=== PATIENT | male | born 1950 | race African-American/Black ===

== ENCOUNTER 2017-03-03 12:37 | Emergency (ER) | payer MEDICARE, MEDICAID ==
[~2017-03-03] VITALS: Ht 177.8 cm; Wt 87.0 kg
[2017-03-03] MEDS ORDERED: ACETAMINOPHEN 325MG TABLET PO STA (13:36)
[2017-03-03 13:58] LABS: HEMOGLOBIN. 9.1 g/dL (14.0-18.0); MEAN CORPUSCULAR HEMOGLOBIN 27.2 pg (28.0-32.0); MEAN CORPUSCULAR VOLUME 80.9 fL (80.0-94.0); MEAN PLATELET VOLUME 6.5 fl (7.4-10.4); PLATELET 110 x1000/uL (130-400); RED BLOOD CELL COUNT 3.34 mill/uL (4.7-6.1)
[2017-03-03 14:10] LABS: CARBON DIOXIDE 25 mEq/L (21-32); CHLORIDE 97 mEq/L (98-107)
[2017-03-03 14:19] LABS: PLATELET ESTIMATE SLIGHTLY DECREASED
[2017-03-03] MEDS ORDERED: SODIUM CHLORIDE 0.9% 1,000 ML IV ONE (14:49)
[2017-03-03] MEDS ORDERED: MORPHINE SULFATE 4 MG/ML CPJ (NOT FOR IM USE) IV ONE (15:30)
[2017-03-03 17:14] VITALS: BP 113/66
== END 2017-03-03 17:18 | disposition home or self-care (01) ==
LOC: ER 13:41
DX: M25.50 Pain in unspecified joint (principal); F17.210 Nicotine dependence, cigarettes, uncomplicated; Z85.46 Personal history of malignant neoplasm of prostate; Z96.659 Presence of unspecified artificial knee joint
CPT/HCPCS: 36415; 80048; 85025; 96361; 96374; 99284; J2270; J7030

== ENCOUNTER 2017-03-05 12:02 | Inpatient (IN) | payer MEDICARE, MEDICAID ==
[~2017-03-05] VITALS: Ht 172.7 cm; Wt 80.3 kg
[2017-03-05] MEDS ORDERED: ONDANSETRON HCL 4MG/2ML VIAL IV STA (12:13)
[2017-03-05] MEDS ORDERED: SODIUM CHLORIDE 0.9% 1,000 ML IV ONE (12:13)
[2017-03-05] MEDS ORDERED: MORPHINE SULFATE 4 MG/ML CPJ (NOT FOR IM USE) IV STA (12:13)
[2017-03-05 12:26] LABS: HEMATOCRIT. 24.7 % (42.0-52.0); HEMOGLOBIN. 8.4 g/dL (14.0-18.0); MEAN CORPUSCULAR VOLUME 79.7 fL (80.0-94.0); MEAN PLATELET VOLUME 6.4 fl (7.4-10.4); PLATELET 120 x1000/uL (130-400); RED CELL DISTRIBUTION WIDTH 16.1 % (11.6-14.6)
[2017-03-05 12:35] LABS: INR 1.2; PARTIAL THROMBOPLASTIN TIME 31.3 sec (23.4-31.0)
[2017-03-05 12:47] LABS: CARBON DIOXIDE 25 mEq/L (21-32); CHLORIDE 99 mEq/L (98-107); TROPONIN I < 0.02 ng/mL (0.00-0.04)
[2017-03-05 12:52] LABS: NUCLEATED RED BLOOD CELLS 1 /100 WBC
[2017-03-05 12:55] LABS: PLATELET ESTIMATE SLIGHTLY DECREASED
[2017-03-05 15:22] LABS: CLARITY URINE CLEAR (CLEAR); COLOR URINE DARK YELLOW (YELLOW); GLUCOSE URINE NEGATIVE (NEGATIVE); KETONES URINE TRACE (NEGATIVE); LEUKOCYTE ESTERASE URINE NEGATIVE (NEGATIVE); NITRITE URINE NEGATIVE (NEGATIVE); OCCULT BLOOD URINE 1+ (NEGATIVE); PROTEIN URINE 1+ (NEGATIVE); SPECIFIC GRAVITY URINE 1.025 (1.005-1.030)
[2017-03-05] MEDS ORDERED: ONDANSETRON HCL 4MG/2ML VIAL IV ONE (16:45)
[2017-03-05] MEDS ORDERED: MORPHINE SULFATE 4 MG/ML CPJ (NOT FOR IM USE) IV ONE (16:45)
[2017-03-05] MEDS ORDERED: DEXAMETHASONE 10 MG/ML VIAL IV ONE (17:30)
[2017-03-05] MEDS ORDERED: NICARDIPINE 100 MG in SODIUM CHLORIDE 0.9% 60 ML IV PRN (20:45)
[2017-03-05 21:13] VITALS: BP_SYST 117; BP_DIAS 65; BP_DIAS 68
[2017-03-05 21:30] VITALS: BP 99/55
[2017-03-05] MEDS ORDERED: TAMS-11 PO (21:39)
[2017-03-05 22:00] VITALS: BP 117/68
[2017-03-05 22:30] VITALS: BP 98/53
[2017-03-05 23:00] VITALS: BP 96/59
[2017-03-05] MEDS: DEXT 5%/LACTATED RINGERS 1,000 ML IV SCH (23:14)
[2017-03-05 23:30] VITALS: BP 106/60
[2017-03-06] VITALS (50 sets, daily range): BP systolic 98–137; BP diastolic 41–107
[2017-03-06] MEDS ORDERED: DEXAMETHASONE 4MG/ML 1ML VIAL IV SCH
[2017-03-06] MEDS: DEXAMETHASONE 4MG/ML 1ML VIAL IV SCH ×4 (00:43→18:47)
[2017-03-06 05:46] LABS: HEMATOCRIT 23.9 % (42.0-52.0); HEMOGLOBIN 8.1 g/dL (14.0-18.0); MEAN CORPUSCULAR HEMOGLOBIN 27.2 pg (28.0-32.0); MEAN CORPUSCULAR VOLUME 80.4 fL (80.0-94.0); PLATELET 129 x1000/uL (130-400); RED BLOOD CELL COUNT 2.97 mill/uL (4.7-6.1); RED CELL DISTRIBUTION WIDTH 16.5 % (11.6-14.6)
[2017-03-06 05:49] LABS: CARBON DIOXIDE 26 mEq/L (21-32); CHLORIDE 101 mEq/L (98-107)
[2017-03-06] MEDS: FAMOTIDINE 20MG/2ML VIAL IV SCH ×2 (08:58→20:41)
[2017-03-06] MEDS: MORPHINE SULFATE 2 MG/ML CPJ (NOT FOR IM USE) IV PRN ×4 (08:59→20:31)
[2017-03-06] MEDS ORDERED: PANTOPRAZOLE SODIUM 40 MG/VIAL IV SCH (09:00)
[2017-03-06] MEDS: DEXT 5%/LACTATED RINGERS 1,000 ML IV SCH (16:32)
[2017-03-06] MEDS ORDERED: IPRATROPIUM/ALBUTEROL 0.5-3(2.5)MG/3ML NEB HHN PRN (18:15)
[2017-03-06] MEDS: TAMSULOSIN HCL 0.4MG SR CAPSULE PO SCH (18:47)
[2017-03-06 19:03] LABS: TOTAL IRON BINDING CAPACITY 148 ug/dL (250-450)
[2017-03-07] VITALS (50 sets, daily range): BP systolic 99–182; BP diastolic 56–107
[2017-03-07] MEDS: DEXAMETHASONE 4MG/ML 1ML VIAL IV SCH ×4 (00:38→18:21)
[2017-03-07] MEDS: MORPHINE SULFATE 2 MG/ML CPJ (NOT FOR IM USE) IV PRN ×4 (00:40→22:01)
[2017-03-07] MEDS: TAMSULOSIN HCL 0.4MG SR CAPSULE PO SCH (08:49)
[2017-03-07] MEDS: FAMOTIDINE 20MG/2ML VIAL IV SCH ×2 (08:49→21:34)
[2017-03-07 09:00] LABS: HEMATOCRIT. 30.6 % (42.0-52.0); HEMOGLOBIN. 10.3 g/dL (14.0-18.0); MEAN CORPUSCULAR HEMOGLOBIN 27.6 pg (28.0-32.0); MEAN CORPUSCULAR VOLUME 81.8 fL (80.0-94.0); MEAN PLATELET VOLUME 6.8 fl (7.4-10.4); PLATELET 132 x1000/uL (130-400); RED BLOOD CELL COUNT 3.73 mill/uL (4.7-6.1); RED CELL DISTRIBUTION WIDTH 16.6 % (11.6-14.6)
[2017-03-07 09:20] LABS: CARBON DIOXIDE 24 mEq/L (21-32); CHLORIDE 103 mEq/L (98-107)
[2017-03-07 11:15] LABS: INR 1.1; PROTHROMBIN TIME 11.7 sec (9.4-11.6)
[2017-03-07 12:46] LABS: NUCLEATED RED BLOOD CELLS 13 /100 WBC; PLATELET ESTIMATE NORMAL
[2017-03-07] MEDS: DEXT 5%/LACTATED RINGERS 1,000 ML IV SCH (17:20)
[2017-03-08] VITALS (69 sets, daily range): BP systolic -11–236; BP diastolic -12–146
[2017-03-08] MEDS: DEXAMETHASONE 4MG/ML 1ML VIAL IV SCH ×4 (00:12→17:40)
[2017-03-08] MEDS: DEXT 5%/LACTATED RINGERS 1,000 ML IV SCH ×2 (01:45→17:41)
[2017-03-08] MEDS ORDERED: GELATIN SPONGE,ABSORBABLE SZ 100 ONE (06:31)
[2017-03-08] MEDS ORDERED: LIDOCAINE HCL 1%/EPI 1:200,000 30 ML VIAL ONE (06:31)
[2017-03-08] MEDS ORDERED: BACITRACIN ZINC 15GM TUBE TOP ONE (06:31)
[2017-03-08] MEDS ORDERED: NORMAL SALINE 0.9% 10 ML SYR ONE (06:32)
[2017-03-08] MEDS ORDERED: THROMBIN (BOVINE) 5000 UNITS/VIAL TOP ONE (06:32)
[2017-03-08] MEDS ORDERED: BACITRACIN 50,000 UNITS/VIAL ONE (06:32)
[2017-03-08] MEDS ORDERED: ETOMIDATE 2MG/ML 10ML VIAL IV ONE (07:39)
[2017-03-08] MEDS ORDERED: CEFAZOLIN SODIUM 1000MG/VIAL ONE (07:39)
[2017-03-08] MEDS ORDERED: PROPOFOL 200MG/20ML VIAL IV ONE ×2 (07:39→08:41)
[2017-03-08] MEDS ORDERED: ONDANSETRON HCL 4MG/2ML VIAL ONE (07:39)
[2017-03-08] MEDS ORDERED: ROCURONIUM BROMIDE 10MG/ML VIAL 5ML IV ONE ×2 (07:39→08:41)
[2017-03-08] MEDS ORDERED: NICARDIPINE 50 MG in SODIUM CHLORIDE 0.9% 230 ML IV PRN (07:45)
[2017-03-08] MEDS ORDERED: DEXT 5%/LACTATED RINGERS 1,000 ML IV SCH (07:45)
[2017-03-08] MEDS ORDERED: MORPHINE SULFATE 2 MG/ML CPJ (NOT FOR IM USE) IV PRN (07:45)
[2017-03-08] MEDS ORDERED: MIDAZOLAM HCL 2 MG/2 ML VIAL ONE ×2 (07:49→07:51)
[2017-03-08] MEDS: TAMSULOSIN HCL 0.4MG SR CAPSULE PO SCH (09:00)
[2017-03-08] MEDS ORDERED: ESMOLOL HCL 10MG/ML 10ML VIAL IV ONE (09:31)
[2017-03-08] MEDS ORDERED: NEOSTIGMINE METHYLSULFATE 1MG/ML 10 ML VIAL ONE (10:04)
[2017-03-08] MEDS ORDERED: GLYCOPYRROLATE 0.2 MG/ML 2ML VIAL ONE (10:04)
[2017-03-08] MEDS ORDERED: ONDANSETRON HCL 4MG/2ML VIAL IV PRN (10:30)
[2017-03-08] MEDS ORDERED: LABETALOL 5MG/ML SYR 20 MG/4 ML SYRINGE IV PRN (10:30)
[2017-03-08] MEDS ORDERED: HYDROMORPHONE HCL/PF 2MG/ML CPJ IV PRN (10:30)
[2017-03-08] MEDS ORDERED: FENTANYL CITRATE/PF 50MCG/ML 2ML VIAL IV PRN (10:30)
[2017-03-08] MEDS: MORPHINE SULFATE 2 MG/ML CPJ (NOT FOR IM USE) IV PRN ×3 (11:25→21:35)
[2017-03-08] MEDS: FAMOTIDINE 20MG/2ML VIAL IV SCH ×2 (11:25→20:58)
[2017-03-08] MEDS ORDERED: CEFAZOLIN SODIUM 1000MG/VIAL IV SCH (14:00)
[2017-03-08] MEDS: CEFAZOLIN 1000MG PREMIX 50 ML IV SCH ×2 (15:05→20:59)
[2017-03-08] MEDS ORDERED: LORAZEPAM 2MG/ML CPJ IV SCH (18:30)
[2017-03-09] VITALS (74 sets, daily range): BP systolic 91–169; BP diastolic 29–132
[2017-03-09] MEDS: MORPHINE SULFATE 2 MG/ML CPJ (NOT FOR IM USE) IV PRN ×4 (00:38→09:09)
[2017-03-09] MEDS: CEFAZOLIN 1000MG PREMIX 50 ML IV SCH (06:05)
[2017-03-09] MEDS: TAMSULOSIN HCL 0.4MG SR CAPSULE PO SCH (08:59)
[2017-03-09] MEDS: FAMOTIDINE 20MG/2ML VIAL IV SCH ×2 (09:06→20:30)
[2017-03-09] MEDS: DEXT 5%/LACTATED RINGERS 1,000 ML IV SCH (09:10)
[2017-03-09] MEDS: LORAZEPAM 2MG/ML CPJ IV PRN ×2 (10:53→17:05)
[2017-03-09] MEDS: BICALUTAMIDE 50 MG TABLET PO SCH (20:00)
[2017-03-10] VITALS (56 sets, daily range): BP systolic 77–171; BP diastolic 43–92
[2017-03-10] MEDS: DEXT 5%/LACTATED RINGERS 1,000 ML IV SCH ×2 (01:45→18:29)
[2017-03-10] MEDS: LORAZEPAM 2MG/ML CPJ IV PRN (05:05)
[2017-03-10] MEDS: MORPHINE SULFATE 2 MG/ML CPJ (NOT FOR IM USE) IV PRN ×4 (05:12→23:03)
[2017-03-10 05:49] LABS: HEMOGLOBIN. 10.1 g/dL (14.0-18.0); MEAN CORPUSCULAR HEMOGLOBIN 27.7 pg (28.0-32.0); MEAN CORPUSCULAR VOLUME 82.2 fL (80.0-94.0); MEAN PLATELET VOLUME 7.2 fl (7.4-10.4); PLATELET 75 x1000/uL (130-400); RED BLOOD CELL COUNT 3.65 mill/uL (4.7-6.1)
[2017-03-10 06:26] LABS: CARBON DIOXIDE 24 mEq/L (21-32); CHLORIDE 106 mEq/L (98-107)
[2017-03-10] MEDS: BICALUTAMIDE 50 MG TABLET PO SCH (08:03)
[2017-03-10] MEDS: FAMOTIDINE 20MG/2ML VIAL IV SCH ×2 (08:03→21:19)
[2017-03-10] MEDS: TAMSULOSIN HCL 0.4MG SR CAPSULE PO SCH (08:04)
[2017-03-10 12:56] LABS: NUCLEATED RED BLOOD CELLS 12 /100 WBC
[2017-03-10 12:57] LABS: PLATELET ESTIMATE DECREASED
[2017-03-10 14:57] LABS: TROPONIN I 0.34 ng/mL (0.00-0.04)
[2017-03-10 14:58] LABS: AMMONIA 38 uMol/L (<32)
[2017-03-11] VITALS (59 sets, daily range): BP systolic 95–151; BP diastolic 37–117
[2017-03-11] MEDS: LORAZEPAM 2MG/ML CPJ IV PRN (02:25)
[2017-03-11] MEDS: MORPHINE SULFATE 2 MG/ML CPJ (NOT FOR IM USE) IV PRN ×3 (04:44→16:34)
[2017-03-11 06:23] LABS: HEMATOCRIT. 27.6 % (42.0-52.0); HEMOGLOBIN. 9.3 g/dL (14.0-18.0); MEAN CORPUSCULAR HEMOGLOBIN 27.7 pg (28.0-32.0); MEAN CORPUSCULAR VOLUME 82.2 fL (80.0-94.0); MEAN PLATELET VOLUME 7.6 fl (7.4-10.4); PLATELET 80 x1000/uL (130-400); RED BLOOD CELL COUNT 3.36 mill/uL (4.7-6.1); RED CELL DISTRIBUTION WIDTH 17.2 % (11.6-14.6)
[2017-03-11] MEDS: FAMOTIDINE 20MG/2ML VIAL IV SCH ×2 (07:47→20:57)
[2017-03-11] MEDS: TAMSULOSIN HCL 0.4MG SR CAPSULE PO SCH (07:49)
[2017-03-11] MEDS: BICALUTAMIDE 50 MG TABLET PO SCH (07:49)
[2017-03-11 08:06] LABS: CARBON DIOXIDE 25 mEq/L (21-32); CREATINE KINASE 190 IU/L (39-308)
[2017-03-11 08:07] LABS: CREATINE KINASE MB FRACTION 0.7 ng/mL (0.5-3.6)
[2017-03-11 08:42] LABS: CHLORIDE 107 mEq/L (98-107)
[2017-03-11 09:07] LABS: IMMUNOGLOBULIN A 173 mg/dL (61-437); IMMUNOGLOBULIN G 696 mg/dL (700-1600); IMMUNOGLOBULIN M 27 mg/dL (20-172)
[2017-03-11 10:36] LABS: NUCLEATED RED BLOOD CELLS 1 /100 WBC; PLATELET ESTIMATE SLIGHTLY DECREASED
[2017-03-11] MEDS ORDERED: POTASSIUM CHLORIDE 20MEQ/PACKET PO SCH (12:15)
[2017-03-11] MEDS: DEXT 5%/LACTATED RINGERS 1,000 ML IV SCH (12:54)
[2017-03-12] VITALS (19 sets, daily range): BP systolic 102–145; BP diastolic 27–97
[2017-03-12] MEDS: MORPHINE SULFATE 2 MG/ML CPJ (NOT FOR IM USE) IV PRN ×3 (03:45→21:57)
[2017-03-12] MEDS: DEXT 5%/LACTATED RINGERS 1,000 ML IV SCH ×2 (03:45→22:05)
[2017-03-12 05:57] LABS: HEMOGLOBIN. 8.9 g/dL (14.0-18.0); MEAN CORPUSCULAR HEMOGLOBIN 27.8 pg (28.0-32.0); MEAN CORPUSCULAR VOLUME 81.4 fL (80.0-94.0); MEAN PLATELET VOLUME 7.6 fl (7.4-10.4); PLATELET 80 x1000/uL (130-400)
[2017-03-12 06:32] LABS: AMMONIA 38 uMol/L (<32)
[2017-03-12 07:02] LABS: CHLORIDE 109 mEq/L (98-107)
[2017-03-12 07:29] LABS: CARBON DIOXIDE 22 mEq/L (21-32)
[2017-03-12] MEDS: TAMSULOSIN HCL 0.4MG SR CAPSULE PO SCH (09:00)
[2017-03-12] MEDS: BICALUTAMIDE 50 MG TABLET PO SCH (09:00)
[2017-03-12] MEDS: FAMOTIDINE 20MG/2ML VIAL IV SCH ×2 (09:06→22:00)
[2017-03-12 10:15] LABS: NUCLEATED RED BLOOD CELLS 4 /100 WBC
[2017-03-12 10:16] LABS: PLATELET ESTIMATE DECREASED
[2017-03-12] MEDS ORDERED: POTASSIUM CHLORIDE 20MEQ TABLET SR PO NR (16:00)
[2017-03-13] VITALS: BP 122/62
[2017-03-13 04:00] VITALS: BP 111/67
[2017-03-13 07:29] LABS: HEMATOCRIT. 26.4 % (42.0-52.0); HEMOGLOBIN. 8.7 g/dL (14.0-18.0); MEAN CORPUSCULAR HEMOGLOBIN 27.3 pg (28.0-32.0); MEAN CORPUSCULAR VOLUME 82.4 fL (80.0-94.0); MEAN PLATELET VOLUME 7.6 fl (7.4-10.4); PLATELET 88 x1000/uL (130-400); RED CELL DISTRIBUTION WIDTH 17.4 % (11.6-14.6)
[2017-03-13 07:56] LABS: CARBON DIOXIDE 22 mEq/L (21-32); CHLORIDE 108 mEq/L (98-107)
[2017-03-13 08:00] VITALS: BP 113/63
[2017-03-13] MEDS: FAMOTIDINE 20MG/2ML VIAL IV SCH ×2 (09:53→21:56)
[2017-03-13] MEDS: TAMSULOSIN HCL 0.4MG SR CAPSULE PO SCH (09:53)
[2017-03-13] MEDS: BICALUTAMIDE 50 MG TABLET PO SCH (09:53)
[2017-03-13 12:00] VITALS: BP 130/66
[2017-03-13 13:33] LABS: NUCLEATED RED BLOOD CELLS 2 /100 WBC; PLATELET ESTIMATE DECREASED
[2017-03-13] MEDS: DEXT 5%/LACTATED RINGERS 1,000 ML IV SCH (13:47)
[2017-03-13 16:00] VITALS: BP 106/60
[2017-03-13 20:00] VITALS: BP 117/65
[2017-03-14] VITALS: BP 101/60
[2017-03-14 04:00] VITALS: BP 116/68
[2017-03-14] MEDS: DEXT 5%/LACTATED RINGERS 1,000 ML IV SCH (05:19)
[2017-03-14 06:32] LABS: CARBON DIOXIDE 23 mEq/L (21-32); CHLORIDE 108 mEq/L (98-107)
[2017-03-14 06:47] LABS: HEMATOCRIT. 25.4 % (42.0-52.0); HEMOGLOBIN. 8.4 g/dL (14.0-18.0); MEAN CORPUSCULAR HEMOGLOBIN 27.5 pg (28.0-32.0); MEAN CORPUSCULAR VOLUME 82.5 fL (80.0-94.0); MEAN PLATELET VOLUME 7.3 fl (7.4-10.4); PLATELET 86 x1000/uL (130-400); RED BLOOD CELL COUNT 3.07 mill/uL (4.7-6.1); RED CELL DISTRIBUTION WIDTH 17.8 % (11.6-14.6)
[2017-03-14 08:00] VITALS: BP 120/60
[2017-03-14] MEDS: BICALUTAMIDE 50 MG TABLET PO SCH (09:00)
[2017-03-14] MEDS: FAMOTIDINE 20MG/2ML VIAL IV SCH ×2 (09:00→21:24)
[2017-03-14] MEDS: TAMSULOSIN HCL 0.4MG SR CAPSULE PO SCH (09:00)
[2017-03-14 12:00] VITALS: BP 130/60
[2017-03-14 13:53] LABS: T4 FREE 0.67 ng/dL (0.76-1.46)
[2017-03-14 14:11] LABS: FOLIC ACID (FOLATE) SERUM 6.1 ng/mL (>5.38)
[2017-03-14 14:20] LABS: AMMONIA 36 uMol/L (<32)
[2017-03-14 16:00] VITALS: BP 113/66
[2017-03-14] MEDS: DOCUSATE SODIUM 100MG CAPSULE PO SCH (17:00)
[2017-03-14] MEDS ORDERED: MORPHINE SULFATE 4 MG/ML CPJ (NOT FOR IM USE) IV PRN (17:30)
[2017-03-14 20:00] VITALS: BP 114/58
[2017-03-14] MEDS: POLYETHYLENE GLYCOL 3350 (17GM) 1 DOSE PACK PO SCH (21:24)
[2017-03-15] VITALS: BP 149/80
[2017-03-15 04:00] VITALS: BP 96/49
[2017-03-15] MEDS: DEXT 5%/LACTATED RINGERS 1,000 ML IV SCH ×2 (05:11→14:47)
[2017-03-15 07:42] VITALS: BP 99/57
[2017-03-15] MEDS: DOCUSATE SODIUM 100MG CAPSULE PO SCH ×2 (08:41→16:11)
[2017-03-15] MEDS: FAMOTIDINE 20MG/2ML VIAL IV SCH ×2 (08:42→22:04)
[2017-03-15] MEDS: BICALUTAMIDE 50 MG TABLET PO SCH (08:42)
[2017-03-15] MEDS: BISACODYL 10MG SUPP PR SCH (09:00)
[2017-03-15] MEDS: TAMSULOSIN HCL 0.4MG SR CAPSULE PO SCH (09:00)
[2017-03-15] MEDS: LACTULOSE 20G/30ML UDC PO SCH ×3 (09:18→16:11)
[2017-03-15 09:30] LABS: NUCLEATED RED BLOOD CELLS 5 /100 WBC; PLATELET ESTIMATE DECREASED
[2017-03-15] MEDS: HYDROCODONE/ACETAMINOPHEN 5/325MG TABLET PO PRN (09:51)
[2017-03-15 12:03] VITALS: BP 100/60
[2017-03-15 20:00] VITALS: BP 116/66
[2017-03-15] MEDS: POLYETHYLENE GLYCOL 3350 (17GM) 1 DOSE PACK PO SCH (22:04)
[2017-03-16] VITALS: BP 111/63
[2017-03-16 04:00] VITALS: BP 129/77
[2017-03-16 04:17] LABS: HEMATOCRIT. 24.1 % (42.0-52.0); HEMOGLOBIN. 8.1 g/dL (14.0-18.0); MEAN CORPUSCULAR HEMOGLOBIN 27.4 pg (28.0-32.0); MEAN PLATELET VOLUME 7.3 fl (7.4-10.4); PLATELET 97 x1000/uL (130-400); RED BLOOD CELL COUNT 2.94 mill/uL (4.7-6.1); RED CELL DISTRIBUTION WIDTH 17.4 % (11.6-14.6)
[2017-03-16 04:31] LABS: CARBON DIOXIDE 26 mEq/L (21-32); CHLORIDE 106 mEq/L (98-107)
[2017-03-16] MEDS: DEXT 5%/LACTATED RINGERS 1,000 ML IV SCH (07:01)
[2017-03-16 08:00] VITALS: BP 130/80
[2017-03-16] MEDS: DOCUSATE SODIUM 100MG CAPSULE PO SCH ×2 (08:16→16:55)
[2017-03-16] MEDS: FAMOTIDINE 20MG/2ML VIAL IV SCH ×2 (08:17→22:41)
[2017-03-16] MEDS: TAMSULOSIN HCL 0.4MG SR CAPSULE PO SCH (08:17)
[2017-03-16] MEDS: BICALUTAMIDE 50 MG TABLET PO SCH (08:17)
[2017-03-16] MEDS: ACETAMINOPHEN 500MG TABLET PO SCH ×3 (09:30→22:41)
[2017-03-16] MEDS ORDERED: POTASSIUM CHLORIDE 20MEQ TABLET SR PO SCH ×2 (09:30→09:45)
[2017-03-16] MEDS: BISACODYL 10MG SUPP PR SCH (09:52)
[2017-03-16 10:17] LABS: NUCLEATED RED BLOOD CELLS 5 /100 WBC; PLATELET ESTIMATE SLIGHTLY DECREASED
[2017-03-16 12:00] VITALS: BP 106/62
[2017-03-16] MEDS: GABAPENTIN 100MG CAPSULE PO SCH ×2 (13:26→22:41)
[2017-03-16 16:00] VITALS: BP 112/62
[2017-03-16] MEDS ORDERED: HALOPERIDOL LACTATE 5MG/ML VIAL IM PRN (17:48)
[2017-03-16 20:00] VITALS: BP 118/58
[2017-03-16] MEDS: POLYETHYLENE GLYCOL 3350 (17GM) 1 DOSE PACK PO SCH (22:42)
[2017-03-17] VITALS (7 sets, daily range): BP systolic 102–128; BP diastolic 54–73
[2017-03-17] MEDS: ACETAMINOPHEN 500MG TABLET PO SCH ×3 (05:32→15:58)
[2017-03-17] MEDS: GABAPENTIN 100MG CAPSULE PO SCH ×2 (05:32→15:58)
[2017-03-17] MEDS: DEXT 5%/LACTATED RINGERS 1,000 ML IV SCH (05:32)
[2017-03-17 06:45] LABS: HEMATOCRIT. 22.6 % (42.0-52.0); HEMOGLOBIN. 7.6 g/dL (14.0-18.0); MEAN CORPUSCULAR HEMOGLOBIN 27.6 pg (28.0-32.0); MEAN CORPUSCULAR VOLUME 81.9 fL (80.0-94.0); MEAN PLATELET VOLUME 6.8 fl (7.4-10.4); PLATELET 90 x1000/uL (130-400); RED BLOOD CELL COUNT 2.76 mill/uL (4.7-6.1); RED CELL DISTRIBUTION WIDTH 17.3 % (11.6-14.6)
[2017-03-17 07:27] LABS: CARBON DIOXIDE 26 mEq/L (21-32); CHLORIDE 107 mEq/L (98-107); HDL CHOLESTEROL 14 mg/dL (40-59); LDL CHOLESTEROL 80 mg/dL (5-100)
[2017-03-17] MEDS: TAMSULOSIN HCL 0.4MG SR CAPSULE PO SCH (09:00)
[2017-03-17] MEDS: BISACODYL 10MG SUPP PR SCH (09:00)
[2017-03-17] MEDS: FAMOTIDINE 20MG/2ML VIAL IV SCH (10:52)
[2017-03-17] MEDS: BICALUTAMIDE 50 MG TABLET PO SCH (10:52)
[2017-03-17] MEDS: DOCUSATE SODIUM 100MG CAPSULE PO SCH ×2 (10:54→17:44)
[2017-03-17 11:26] LABS: NUCLEATED RED BLOOD CELLS 13 /100 WBC; PLATELET ESTIMATE SLIGHTLY DECREASED
[2017-03-17] MEDS ORDERED: POTASSIUM CHLORIDE 20MEQ TABLET SR PO NR (14:30)
[2017-03-17] MEDS: HYDROCODONE/ACETAMINOPHEN 5/325MG TABLET PO PRN (17:44)
[2017-03-17] MEDS ORDERED: POTASSIUM CHLORIDE 20MEQ TABLET SR PO SCH (19:00)
== END 2017-03-17 20:20 | DRG 471 ==
LOC: ER 12:17 → EDBEDREQTM 16:28 → EDBEDREQSVC 16:28 → EDBEDREQ 16:28 → CANRESERV 16:44 → ENRESERV 16:44 → EDBEDREQSVC 17:19 → EDBEDREQTM 17:19 → EDBEDREQ 17:19 → MICUSO 17:19 → CANBEDREQ 17:23 → ENRESERV 19:00 → MICUSO 03-11 09:30 → 6EST 03-12 19:16
PROVIDERS: ADMIT Internal Medicine; ATTEND Internal Medicine
PROC: 00NW0ZZ Release Cervical Spinal Cord, Open Approach (ICD-10-PCS; 2017-03-08)
PROC: 0RB30ZZ Excision of Cervical Vertebral Disc, Open Approach (ICD-10-PCS; 2017-03-08)
PROC: 0RG1070 Fusion of Cervical Vertebral Joint with Autologous Tissue Substitute, Anterior Approach, Anterior Column, Open Approach (ICD-10-PCS; principal; 2017-03-08 07:30)
DX: M47.12 Other spondylosis with myelopathy, cervical region (principal); G82.50 Quadriplegia, unspecified; I63.9 Cerebral infarction, unspecified; G92 Toxic encephalopathy; E44.0 Moderate protein-calorie malnutrition; C79.51 Secondary malignant neoplasm of bone; D69.6 Thrombocytopenia, unspecified; I11.9 Hypertensive heart disease without heart failure; J98.11 Atelectasis; R13.10 Dysphagia, unspecified; M48.02 Spinal stenosis, cervical region; M47.9 Spondylosis, unspecified; F17.210 Nicotine dependence, cigarettes, uncomplicated; C61 Malignant neoplasm of prostate; M48.06 Spinal stenosis, lumbar region; I49.3 Ventricular premature depolarization; J33.8 Other polyp of sinus; J44.9 Chronic obstructive pulmonary disease, unspecified; M19.90 Unspecified osteoarthritis, unspecified site; M25.78 Osteophyte, vertebrae; R74.8 Abnormal levels of other serum enzymes; R73.9 Hyperglycemia, unspecified; M54.12 Radiculopathy, cervical region; Z96.659 Presence of unspecified artificial knee joint; Z78.1 Physical restraint status; Z85.46 Personal history of malignant neoplasm of prostate; Z92.3 Personal history of irradiation; D63.0 Anemia in neoplastic disease
CPT/HCPCS: 36415; 36430; 70450; 70553; 71010; 72040; 72141; 72148; 80048; 80053; 80061; 81001; 82140; 82270; 82550; 82553; 82607; 82746; 82784; 83036; 83540; 83550; 83690; 83735; 83880; 84153; 84439; 84443; 84481; 84484; 85025; 85027; 85610; 85730; 86334; 86850; 86900; 86920; 88304; 88311; 92523; 92610; 93005; 93306; 93880; 93970; 96361; 96374; 96375; 96376; 97110; 97112; 97162; 97164; 97166; 97530; 99291; A4216; A6261; C1713; J0690; J1100; J1170; J1630; J2060; J2250; J2270; J2405; J2704; J2710; J3490; J7030; J7050; J7120; L0172; P9016; A4315

== ENCOUNTER 2017-03-20 20:27 | Inpatient (IN) | payer MEDICARE, OTHER ==
[~2017-03-20] VITALS: Ht 160 cm; Wt 78.5 kg
[~2017-03-20 20:27] MED LIST: TAMS-11 PO
[2017-03-20 22:47] LABS: EOSINOPHILS % 0.5 % (0.0-5.0); HEMATOCRIT. 21.5 % (42.0-52.0); LYMPHOCYTES % 29.5 % (20.0-50.0); MEAN CORPUSCULAR VOLUME 82.7 fL (80.0-94.0); MEAN PLATELET VOLUME 6.9 fl (7.4-10.4); MONOCYTES % 6.2 % (2.0-8.0); NEUTROPHILS % 62.8 % (40.0-76.0); PLATELET 78 x1000/uL (130-400); RED CELL DISTRIBUTION WIDTH 17.9 % (11.6-14.6)
[2017-03-20 22:50] LABS: CHLORIDE 103 mEq/L (98-107)
[2017-03-20 22:54] LABS: INR 1.1; PROTHROMBIN TIME 11.5 sec (9.4-11.6)
[2017-03-20 22:55] LABS: CARBON DIOXIDE 28 mEq/L (21-32)
[2017-03-21] VITALS (9 sets, daily range): BP systolic 90–114; BP diastolic 47–96
[2017-03-21] MEDS ORDERED: DOCUSATE SODIUM 100MG CAPSULE PO PRN (08:00)
[2017-03-21] MEDS ORDERED: GUAIFENESIN 200MG/10ML SUGAR FREE UDC PO PRN (08:00)
[2017-03-21] MEDS ORDERED: HYDROCODONE/ACETAMINOPHEN 10/325MG TABLET PO PRN (08:00)
[2017-03-21] MEDS ORDERED: LORAZEPAM 1MG TABLET PO PRN (08:00)
[2017-03-21] MEDS ORDERED: ONDANSETRON HCL 4MG/2ML VIAL IV PRN (08:00)
[2017-03-21] MEDS ORDERED: DIPHENHYDRAMINE 50MG/ML VIAL IV PRN (08:00)
[2017-03-21] MEDS ORDERED: IPRATROPIUM/ALBUTEROL 0.5-3(2.5)MG/3ML NEB INH PRN (08:00)
[2017-03-21 09:38] LABS: TOTAL IRON BINDING CAPACITY 146 ug/dL (250-450)
[2017-03-21] MEDS ORDERED: MVI, ADULT NO.1 10 ML, FOLIC ACID 1 MG, THIAMINE HCL 100 MG in SODIUM CHLORIDE 0.9% 1,0... IV NR ×4 (11:00)
[2017-03-21 11:54] LABS: HEPATITIS B SURFACE ANTIGEN NEGATIVE
[2017-03-21 12:03] LABS: T4 FREE 0.91 ng/dL (0.76-1.46)
[2017-03-21 12:22] LABS: HEPATITIS B CORE AB IGM NEGATIVE
[2017-03-21] MEDS ORDERED: POTASSIUM CHLORIDE 20MEQ/PACKET PO NR (14:00)
[2017-03-21 14:43] LABS: FOLIC ACID (FOLATE) SERUM 7.6 ng/mL (>5.38)
[2017-03-21 16:58] LABS: CLARITY URINE TURBID (CLEAR); COLOR URINE DARK YELLOW (YELLOW); GLUCOSE URINE TRACE (NEGATIVE); KETONES URINE NEGATIVE (NEGATIVE); LEUKOCYTE ESTERASE URINE 3+ (NEGATIVE); NITRITE URINE NEGATIVE (NEGATIVE); OCCULT BLOOD URINE NEGATIVE (NEGATIVE); PH URINE >=9.0 (4.5-8.0); PROTEIN URINE 1+ (NEGATIVE); SPECIFIC GRAVITY URINE 1.018 (1.005-1.030)
[2017-03-21 17:41] LABS: *AMPHETAMINES SCREEN URINE NEGATIVE (NEGATIVE); *BARBITURATES SCREEN URINE NEGATIVE (NEGATIVE); *BENZODIAZEPINES SCREEN URINE NEGATIVE (NEGATIVE); *COCAINE SCREEN URINE NEGATIVE (NEGATIVE); CANNABINOID URINE SCREEN PRESUMTIVE POSITIVE (NEGATIVE); METHADONE URINE SCREEN NEGATIVE (NEGATIVE); OPIATES URINE SCREEN NEGATIVE (NEGATIVE); PHENCYCLIDINE URINE SCREEN NEGATIVE (NEGATIVE)
[2017-03-21 20:20] LABS: HEMATOCRIT 21.1 % (42.0-52.0); HEMOGLOBIN 7.1 g/dL (14.0-18.0)
[2017-03-21] MEDS: TAMSULOSIN HCL 0.4MG SR CAPSULE PO SCH (20:31)
[2017-03-21 20:33] LABS: AMMONIA 44 uMol/L (<32)
[2017-03-22 04:00] VITALS: BP 102/51
[2017-03-22 06:23] LABS: HEMATOCRIT. 23.6 % (42.0-52.0); HEMOGLOBIN. 7.9 g/dL (14.0-18.0); MEAN CORPUSCULAR HEMOGLOBIN 27.8 pg (28.0-32.0); MEAN CORPUSCULAR VOLUME 83.1 fL (80.0-94.0); MEAN PLATELET VOLUME 7.3 fl (7.4-10.4); PLATELET 81 x1000/uL (130-400); RED BLOOD CELL COUNT 2.84 mill/uL (4.7-6.1); RED CELL DISTRIBUTION WIDTH 17.1 % (11.6-14.6)
[2017-03-22 06:41] LABS: CARBON DIOXIDE 28 mEq/L (21-32); CHLORIDE 104 mEq/L (98-107); HDL CHOLESTEROL 36 mg/dL (40-59); LDL CHOLESTEROL 91 mg/dL (5-100); TROPONIN I < 0.02 ng/mL (0.00-0.04)
[2017-03-22 08:00] VITALS: BP 96/60
[2017-03-22] MEDS: BICALUTAMIDE 50 MG TABLET PO SCH (08:02)
[2017-03-22 10:15] LABS: BG BASE EXCESS 3.1 mmol/L (-2.0-2.0); BG CARBOXYHEMOGLOBIN 0.4 % (0.5-1.5); BG DEOXYHEMOGLOBIN 4.4 % (0.0-5.0); BG FRACTION INSPIRED OXYGEN 21; BG HCO3 ACT 26.4 mmol/L (22.0-26.0); BG METHEMOGLOBIN 0.4 % (0.0-1.5); BG OXYGEN SATURATION 95.6 % (92.0-98.5); BG OXYHEMOGLOBIN 94.8 % (94.0-97.0); BG PH 7.496 (7.350-7.450); BG PO2 78.3 mmHg (75.0-100.0); BG SAMPLE SITE RIGHT BRACHIAL; BG TOTAL HEMOGLOBIN 7.8 g/dL (12.0-18.0); BG VENT MODE ROOM AIR
[2017-03-22 12:00] VITALS: BP 101/43
[2017-03-22] MEDS ORDERED: POTASSIUM CHLORIDE 20MEQ/PACKET PO NR (13:45)
[2017-03-22 14:05] LABS: NUCLEATED RED BLOOD CELLS 5 /100 WBC
[2017-03-22 14:08] LABS: PLATELET ESTIMATE DECREASED
[2017-03-22 16:00] VITALS: BP 114/62
[2017-03-22 20:49] VITALS: BP 107/58
[2017-03-22] MEDS: TAMSULOSIN HCL 0.4MG SR CAPSULE PO SCH (21:06)
[2017-03-23 00:15] VITALS: BP 107/53
[2017-03-23 04:00] VITALS: BP 99/52
[2017-03-23 08:00] VITALS: BP 111/66
[2017-03-23] MEDS: BICALUTAMIDE 50 MG TABLET PO SCH (08:31)
[2017-03-23 12:00] VITALS: BP 109/55
[2017-03-23 16:00] VITALS: BP 104/53
[2017-03-23 20:00] VITALS: BP 116/57
[2017-03-23] MEDS: TAMSULOSIN HCL 0.4MG SR CAPSULE PO SCH (21:43)
[2017-03-24] VITALS: BP 109/54
[2017-03-24] MEDS: HYDROCODONE/ACETAMINOPHEN 5/325MG TABLET PO PRN (03:13)
[2017-03-24 04:00] VITALS: BP 104/56
[2017-03-24 06:24] LABS: AMMONIA 31 uMol/L (<32)
[2017-03-24 06:30] LABS: HEMATOCRIT. 21.5 % (42.0-52.0); HEMOGLOBIN. 7.3 g/dL (14.0-18.0); MEAN CORPUSCULAR VOLUME 82.1 fL (80.0-94.0); MEAN PLATELET VOLUME 7.2 fl (7.4-10.4); PLATELET 84 x1000/uL (130-400); RED BLOOD CELL COUNT 2.62 mill/uL (4.7-6.1); RED CELL DISTRIBUTION WIDTH 17.5 % (11.6-14.6)
[2017-03-24 07:52] LABS: CARBON DIOXIDE 27 mEq/L (21-32); CHLORIDE 105 mEq/L (98-107)
[2017-03-24 08:07] VITALS: BP 106/42
[2017-03-24] MEDS: BICALUTAMIDE 50 MG TABLET PO SCH (08:16)
[2017-03-24] MEDS: SENNOSIDES/DOCUSATE SOD 8.6/50MG TABLET PO SCH (11:29)
[2017-03-24 12:26] VITALS: BP 115/57
[2017-03-24 16:30] VITALS: BP 120/51
[2017-03-24 19:09] LABS: NUCLEATED RED BLOOD CELLS 6 /100 WBC
[2017-03-24 19:10] LABS: PLATELET ESTIMATE MARKEDLY DECREASED
[2017-03-24 19:53] VITALS: BP 93/41
[2017-03-24] MEDS: TAMSULOSIN HCL 0.4MG SR CAPSULE PO SCH (21:00)
[2017-03-25] VITALS (7 sets, daily range): BP systolic 96–123; BP diastolic 35–71
[2017-03-25] MEDS: SENNOSIDES/DOCUSATE SOD 8.6/50MG TABLET PO SCH (09:00)
[2017-03-25] MEDS: BICALUTAMIDE 50 MG TABLET PO SCH (09:22)
[2017-03-25] MEDS: HYDROCODONE/ACETAMINOPHEN 5/325MG TABLET PO PRN (09:32)
[2017-03-25] MEDS ORDERED: BICA50TA2 PO (10:01)
[2017-03-25] MEDS ORDERED: LEVO500T2 PO (10:01)
[2017-03-25] MEDS: LEVOFLOXACIN 500MG TABLET PO SCH (12:57)
[2017-03-25 15:29] LABS: HEPATITIS A AB IGM NEGATIVE (NEGATIVE)
[2017-03-25 20:38] LABS: HEMATOCRIT 21.4 % (42.0-52.0); HEMOGLOBIN 7.3 g/dL (14.0-18.0)
[2017-03-25] MEDS: TAMSULOSIN HCL 0.4MG SR CAPSULE PO SCH (21:11)
[2017-03-26] VITALS (10 sets, daily range): BP systolic 104–126; BP diastolic 45–65
[2017-03-26 08:43] LABS: HEMATOCRIT. 26.7 % (42.0-52.0); HEMOGLOBIN. 8.8 g/dL (14.0-18.0); MEAN CORPUSCULAR HEMOGLOBIN 27.8 pg (28.0-32.0); MEAN CORPUSCULAR VOLUME 84.6 fL (80.0-94.0); MEAN PLATELET VOLUME 7.4 fl (7.4-10.4); PLATELET 99 x1000/uL (130-400); RED BLOOD CELL COUNT 3.16 mill/uL (4.7-6.1); RED CELL DISTRIBUTION WIDTH 16.8 % (11.6-14.6)
[2017-03-26 09:09] LABS: CARBON DIOXIDE 26 mEq/L (21-32); CHLORIDE 106 mEq/L (98-107)
[2017-03-26] MEDS: SENNOSIDES/DOCUSATE SOD 8.6/50MG TABLET PO SCH (09:16)
[2017-03-26] MEDS: LEVOFLOXACIN 500MG TABLET PO SCH (09:16)
[2017-03-26] MEDS: BICALUTAMIDE 50 MG TABLET PO SCH (09:16)
[2017-03-26 20:38] LABS: NUCLEATED RED BLOOD CELLS 7 /100 WBC; PLATELET ESTIMATE DECREASED
== END 2017-03-26 13:50 | DRG 542 ==
LOC: ER 20:27 → 6WST 03-21 00:38 → ENRESERV 03-21 05:54
PROVIDERS: ADMIT Internal Medicine; ATTEND Internal Medicine
PROC: 30233N1 Transfusion of Nonautologous Red Blood Cells into Peripheral Vein, Percutaneous Approach (ICD-10-PCS; principal; 2017-03-21)
DX: C79.52 Secondary malignant neoplasm of bone marrow (principal); G92 Toxic encephalopathy; D61.818 Other pancytopenia; I11.9 Hypertensive heart disease without heart failure; D69.6 Thrombocytopenia, unspecified; C61 Malignant neoplasm of prostate; D63.8 Anemia in other chronic diseases classified elsewhere; C79.51 Secondary malignant neoplasm of bone; J44.9 Chronic obstructive pulmonary disease, unspecified; F17.200 Nicotine dependence, unspecified, uncomplicated; I49.3 Ventricular premature depolarization; M19.90 Unspecified osteoarthritis, unspecified site; Z96.659 Presence of unspecified artificial knee joint; Z86.73 Personal history of transient ischemic attack (TIA), and cerebral infarction without residual deficits; Z92.3 Personal history of irradiation
CPT/HCPCS: 36415; 36600; 70450; 71010; 80048; 80053; 80061; 80305; 81001; 82140; 82375; 82607; 82746; 82805; 83036; 83540; 83550; 83690; 83735; 84153; 84439; 84443; 84481; 84484; 85014; 85018; 85025; 85610; 86705; 86709; 86803; 86850; 86900; 86920; 87077; 87086; 87186; 87340; 93005; 93970; 97116; 97162; 97535; 99285; J2405; J3411; J3490; J7030; J7040; J7050; P9016